=== PATIENT | female | born 1990 | race Caucasian/White ===

== ENCOUNTER 2018-05-11 00:49 | Inpatient (IN) | payer OTHER ==
[~2018-05-11] VITALS: Ht 172.7 cm; Wt 81.6 kg
[~2018-05-11 00:49] MED LIST: IBUPROFEN800 M1 PO
[2018-05-11 01:44] LABS: ABSOLUTE BASOPHIL COUNT 0 /CUMM (0.0-0.2); ABSOLUTE EOSINOPHIL COUNT 0.1 /CUMM (0.0-0.7); ABSOLUTE GRANULOCYTE CT 11.9 /CUMM (1.4-6.5); ABSOLUTE LYMPH COUNT 1.7 /CUMM (1.2-3.4); ABSOLUTE MONOCYTE COUNT 0.9 /CUMM (0.10-0.60); BASOPHIL % 0.1 % (0.0-2.0); EOSINOPHIL % 0.7 % (0-5); GRANULOCYTE % 81.1 % (42.2-75.2); MEAN CORPUSCULAR HGB 31.6 PG (27.0-31.0); MEAN CORPUSCULAR HGB CONC 35.1 G/DL (33.0-37.0); MEAN PLATELET VOLUME 8.5 FL (7.4-10.4); PLATELET COUNT 152 /CUMM (130-400); RBC DISTRIBUTION WIDTH 12.4 % (11.5-14.5); WHITE BLOOD CELL COUNT 14.6 /CUMM (4.8-10.8)
--- NOTE | 2018-05-11 07:09 | History & Physical ---
General Information and HPI MD Statement: I have seen and personally examined LARA NAVARRO and documented this H&P. The patient is a 27 year old female at 40 weeks and 2 days gestation who presented with a chief complaint of labor pains. 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 EENTM: Denies: blurred vision, double vision, visual changes. Cardiovascular: Denies: chest pain, palpitations, peripheral edema. Respiratory: Denies: cough, short of breath. GI: Denies: nausea, vomiting. Musculoskeletal: Denies: back pain. Neurological/Psychological: Denies: anxiety, depressed. Exam & Diagnostic Data Last 24 Hrs of Vital Signs/I&O Intake & Output 05/11 0800 /15 0000 05/10 1600 Intake Total Output Total Balance Patient 180 lb Weight Obstetric Exam Wgt Gained During : 48# Pelvimetry: tested to7# 5oz Dilation (cm): 6 Effacement (%): 90 Station: 0 Membranes: SROM Fluid: clear Fundal Height (cm): 37 Multiple Gestation? No Contractions: Q3-4 min Infant #1 - FHR Baseline: 160 Category: 1 Estimated Weight: 3500 Presentation: VTX Patient for Induction? No Physical Exam General Appearance Alert, Oriented X3, Cooperative, No Acute Distress Skin No Rashes HEENT Atraumatic Neck Supple Cardiovascular Regular Rate Lungs Clear to Auscultation Abdomen Soft Neurological Normal Gait, Normal Speech, Strength at 5/5 X4 Ext, Normal Tone Extremities No Edema Labs Blood Type & Rh: a pos Antibody Screen: NEG Hct/Hgb & Platelets #1: 39.3/12.7/197 Hct/Hgb & Platelets #2: 38.1/11.5/212 Rubella: imm VDRL #1: nr VDRL #2: nr HbsAg: neg HIV #1: nr HIV #2 nr 1 Hr P Group B Strep: pos Initial Ultrasound: 10/03/2017 Anatomy Ultrasound: 01/15/18 Genetic Testing: negative Last 24 Hrs of Labs/Gigi: Laboratory Tests 05/11/18 0300: Ur Random Creatinine 24.9, U Random Total Protein 20 H, Protein/Creatinin Ratio 0.8 H 05/11/18 0119: Ur Random Creatinine 19.1, U Random Total Protein 17 H, Protein/Creatinin Ratio 0.8 H 05/11/18 0119: Estimated GFR > 60, Uric Acid 3.5, AST 19, ALT 19, Lactate Dehydrogenase 352, CBC w Diff NO MAN DIFF REQ, RBC 4.00 L, MCV 90.0, MCH 31.6 H, MCHC 35.1, RDW 12.4, MPV 8.5, Gran % 81.1 H, Lymphocytes % 11.8 L, Monocytes % 6.3, Eosinophils % 0.7, Basophils % 0.1, Absolute Granulocytes 11.9 H, Absolute Lymphocytes 1.7, Absolute Monocytes 0.9 H, Absolute Eosinophils 0.1, Absolute Basophils 0, Urinalysis LIGHT H, Urine Color STRAW, Urine Clarity HAZY H, Urine pH 7.0, Ur Specific [place] <= 1.005, Urine Protein NEG, Urine Ketones NEG , Urine Nitrite NEG, Urine Bilirubin NEG, Urine Urobilinogen 0.2, Ur Leukocyte Esterase TRACE H, Ur Microscopic SEDIMENT EXAMINED, Urine RBC 1-3, Urine WBC 1- 3 H, Ur Epithelial Cells FEW, Urine Bacteria RARE H, Urine Mucus FEW, Urine Hemoglobin NEG, Urine Glucose NEG Assessment/Plan Assessment/Plan: Multip IUP at Term SROM clear fluid Active labor/ requesting epidural Hypertension/ associated/preeclampsia PIH Labs all normal except Up/cr ratio 0.8 tachycardia maternal temp 100.8/ Rx tylenol IV hydration Plan delivery expected soon. As Ranked By This Provider Problem List: 1. Preeclampsia 2. Normal labor 3. Chorioamnionitis Core Measures Venous Thromboembolism VTE Risk Factors / No Mechanical VTE Prophylaxis d/t LowRisk-No Interven Req'd No VTE Pharm Prophylaxis d/t LowRisk-No Interven Req'd Attending MD Review Statement Attending Statement Attending MD Statement: examined this patient, discussed with family, discussed w/nursing
--- NOTE | 2018-05-11 07:14 | Labor & Delivery Summary ---
Delivery Summary Vaginal Delivery: Vaginal: vertex Episiotomy/Lacerations: Episiotomy/Lacerations: none Placenta: Placenta: spontanteous, normal, 3 vessel Anesthesia: block Apgars - 1 Min: 9 Apgars - 5 Min: 9 Additional Comments: delivered with 3 pushes loose nuchal cord placenta delivered intact good hemostasis with IV Pitocin will watch temp and Bp but expect resolution
[2018-05-12 09:38] LABS: ABSOLUTE BASOPHIL COUNT 0 /CUMM (0.0-0.2); ABSOLUTE EOSINOPHIL COUNT 0.2 /CUMM (0.0-0.7); ABSOLUTE GRANULOCYTE CT 11.6 /CUMM (1.4-6.5); ABSOLUTE MONOCYTE COUNT 0.7 /CUMM (0.10-0.60); BASOPHIL % 0.2 % (0.0-2.0); EOSINOPHIL % 1.2 % (0-5); GRANULOCYTE % 79.7 % (42.2-75.2); HEMATOCRIT 35.5 % (37-47); MEAN CORPUSCULAR HGB 31.3 PG (27.0-31.0); MEAN CORPUSCULAR HGB CONC 34.2 G/DL (33.0-37.0); MEAN CORPUSCULAR VOLUME 91.6 FL (81.0-99.0); MEAN PLATELET VOLUME 8.8 FL (7.4-10.4); PLATELET COUNT 139 /CUMM (130-400); RED BLOOD CELL CT 3.87 /CUMM (4.20-5.40); WHITE BLOOD CELL COUNT 14.6 /CUMM (4.8-10.8)
--- NOTE | 2018-05-12 14:21 | PN- OBGYN ---
Surgical Brief Attending Note Brief Attending Note: PT FEELING WELL. AMB / VOID / JESSICA PO. MILD CRAMPING W/ BF. NO BAILEY / CP / SOB. NO BV / EPIG PAIN. NO N/V. AFEB, V/SS, BP 120/80 NAD ABD SOFT NT FF OCTAVIO MIN LOCHIA EXT NT NO ED HCT 36-->35 PLT 156 --> 139 A/P PPD 1 S/P , DOING WELL DESIRES D/C HOME TODAY -CONT ROUTINE PP CARE -PP INSTRUCTIONS REVIEWED -D/C HOME W/ F/U IN 6 WKS (NOT INTERESTED IN 2 WK F/U) -F/U ON L&D IN 2 DAYS
== END 2018-05-12 14:55 | DRG 775 ==
LOC: CBCO 00:49 → GNO 01:01
PROVIDERS: Obstetrics & Gynecology
PROC: 10E0XZZ Delivery of Products of Conception, External Approach (ICD-10-PCS; principal; 2018-05-11)
DX: O14.94 Unspecified pre-eclampsia, complicating childbirth (principal); O41.1230 Chorioamnionitis, third trimester, not applicable or unspecified; Z3A.40 40 weeks gestation of pregnancy; Z37.0 Single live birth; O99.824 Streptococcus B carrier state complicating childbirth
CPT/HCPCS: GNOS; 81001; 82570; 88307; J0131; J7120